=== PATIENT | male | born 1985 | race Caucasian/White ===

== ENCOUNTER 2024-01-20 20:27 | Emergency (ER) | payer MEDICARE, SELFPAY ==
[2024-01-20 20:28] VITALS: BP 138/82; PULSE 105; RESP 18; TEMP 36.9; O2SAT 97; BMI 64.5
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
[2024-01-20] MEDS: HYDROmorphone 1 mg/mL INJ 1 mL IVP (20:45)
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
[2024-01-20 20:50] VITALS: BP 149/90; PULSE 104; RESP 17; O2SAT 93
[2024-01-20 21:04] LABS: Basophils # 0.1 10^3/uL (0.0-0.1); Basophils % 0.8 %; Eosinophils # 0.4 10^3/uL (0.0-0.8); Eosinophils % 4.3 %; Hematocrit 35.4 % (37-53); Lymphocytes # 1.3 10^3/uL (0.8-4.8); Lymphocytes % 14.2 %; Mean Corpuscular HGB Conc 33.6 g/dL (30-55); Mean Corpuscular Hemoglobin 30.3 pg (27-33); Mean Corpuscular Volume 90.1 fl (82-101); Mean Platelet Volume 9.5 fL (7.4-10.4); Monocytes # 0.8 10^3/uL (0.2-0.9); Monocytes % 8.6 %; Neutrophils # 6.63 10^3/uL (1.8-7.7); Neutrophils % 71.6 %; Nucleated Red Blood Cells % 0 %; Platelet Count 219 10^3/cmm (157-399); Red Blood Count 3.93 10^6/uL (3.85-5.65); Red Cell Distribution Width 13.1 % (12.1-15.1); White Blood Count 9.27 10^3/uL (3.29-11.43)
[2024-01-20 21:13] LABS: Anion Gap 12.5 (5-19); Blood Urea Nitrogen 14 mg/dL (6-20); Carbon Dioxide 15 mmol/L (22-29); Chloride 119 mmol/L (98-107); Creatinine Clr Calc Pharmacy 192.4563; Glomerular Filtration Rate 107.1 mL/min (90-130); Glucose 87 mg/dL (65-115); Osmolality Calculated 298 mOsm/kg (285-295); Sodium 144 mmol/L (136-145)
[2024-01-20] MEDS: iohexol 350 mg/mL 500 mL Btl (per mL) IV (21:14)
[2024-01-20 21:30] VITALS: BP 145/104; PULSE 97; RESP 16; O2SAT 96
[2024-01-20 21:33] LABS: Calcium 5.7 mg/dL (8.5-10.5); Potassium 2.5 mmol/L (3.5-5.1)
[2024-01-20] MEDS: BUPivacaine 0.5% INJ 10 mL 30 ML INJECTION (21:51)
[2024-01-20 21:55] LABS: Magnesium 1.3 mg/dL (1.7-2.3)
[2024-01-20] MEDS: magnesium sulfate premix 1 GM/100 ML PIGGYBACK IV (21:56)
[2024-01-20 22:00] VITALS: BP 114/88; PULSE 91; RESP 16; O2SAT 96
[2024-01-20] MEDS: lidocaine 1% INJ 10 mL (per mL) 40 ML SUBCUT (22:00)
[2024-01-20] MEDS: potassium chloride ER 20 mEq Tablet 100 MEQ PO (22:18)
[2024-01-20 22:31] VITALS: BP 144/83; PULSE 92; RESP 16; O2SAT 97
[2024-01-20 23:15] VITALS: BP 150/100; PULSE 93; RESP 16; O2SAT 97
[2024-01-21] VITALS: BP 105/82; PULSE 80; RESP 16; O2SAT 95
[2024-01-21 00:27] LABS: Blood Urea Nitrogen 18 mg/dL (6-20); Calcium 8.8 mg/dL (8.5-10.5); Carbon Dioxide 20 mmol/L (22-29); Chloride 107 mmol/L (98-107); Creatinine Clr Calc Pharmacy 118.4346; Glomerular Filtration Rate 61.1 mL/min (90-130); Glucose 131 mg/dL (65-115); Osmolality Calculated 294 mOsm/kg (285-295); Sodium 140 mmol/L (136-145)
[2024-01-21 00:42] LABS: Anion Gap 17.1 (5-19); Potassium 4.1 mmol/L (3.5-5.1)
== END 2024-01-21 01:04 | disposition home or self-care (01) ==
PROVIDERS: Emergency Provider Emergency Medicine
DX: S41.112A Laceration without foreign body of left upper arm, initial encounter (principal); E87.6 Hypokalemia; S00.83XA Contusion of other part of head, initial encounter; S20.219A Contusion of unspecified front wall of thorax, initial encounter; V89.2XXA Person injured in unspecified motor-vehicle accident, traffic, initial encounter
CPT/HCPCS: 12002; 12036; 36415; 70450; 71260; 72125; 73060; 74177; 80048; 83735; 85025; 96365; 96375; 99285; J1170; J3475; J3490; Q9967